=== PATIENT | female | born 1990 | race Caucasian/White ===

== ENCOUNTER 2022-03-24 12:21 | Outpatient (CLI) | payer OTHER, SELFPAY | END 2022-03-24 12:22 | disposition home or self-care (01) | LOC: FRMREF 04-01 14:03 | PROVIDERS: PCP Physician Assistant Medical; Visit Provider Nurse Practitioner Family | DX: R30.0 Dysuria (principal) | CPT/HCPCS: 87086 ==

== ENCOUNTER 2022-10-21 13:28 | Outpatient (CLI) | payer OTHER, SELFPAY ==
[2022-10-21 22:07] LABS: Chlamydia DNA Amplified* NOT DETECTED (No Detected); GC DNA Amplified* NOT DETECTED (No Detected)
== END 2022-10-21 13:29 | disposition home or self-care (01) ==
PROVIDERS: PCP Physician Assistant Medical; Visit Provider Physician Assistant Medical
DX: Z00.00 Encounter for general adult medical examination without abnormal findings (principal); D50.9 Iron deficiency anemia, unspecified; E11.9 Type 2 diabetes mellitus without complications; Z13.29 Encounter for screening for other suspected endocrine disorder; Z11.3 Encounter for screening for infections with a predominantly sexual mode of transmission; Z13.6 Encounter for screening for cardiovascular disorders
CPT/HCPCS: 80053; 80061; 82043; 82570; 84443; 87491; 87591; 87624; 88174

== ENCOUNTER 2023-01-19 07:53 | Outpatient (CLI) | payer OTHER, SELFPAY | END 2023-01-19 07:54 | disposition home or self-care (01) | LOC: NFLDREF 01-21 22:07 | PROVIDERS: PCP Physician Assistant Medical; Referring Provider Physician Assistant Medical; Visit Provider Physician Assistant Medical | DX: E11.9 Type 2 diabetes mellitus without complications (principal); E78.5 Hyperlipidemia, unspecified | CPT/HCPCS: 80061; 80076 ==

== ENCOUNTER 2023-07-12 09:03 | Outpatient (CLI) | payer OTHER, SELFPAY | END 2023-07-12 09:04 | disposition home or self-care (01) | LOC: NFLDREF 07-19 06:55 | PROVIDERS: PCP Physician Assistant Medical; Referring Provider Physician Assistant Medical; Visit Provider Physician Assistant Medical | DX: E11.9 Type 2 diabetes mellitus without complications (principal); E78.5 Hyperlipidemia, unspecified | CPT/HCPCS: 80061; 80076 ==

== ENCOUNTER 2023-10-17 11:34 | Outpatient (CLI) | payer OTHER, SELFPAY | END 2023-10-17 11:35 | disposition home or self-care (01) | PROVIDERS: PCP Physician Assistant Medical; Referring Provider Physician Assistant Medical; Visit Provider Nurse Practitioner Family | DX: R30.0 Dysuria (principal); N91.2 Amenorrhea, unspecified; R42 Dizziness and giddiness; R11.0 Nausea; R11.2 Nausea with vomiting, unspecified | CPT/HCPCS: 87086 ==

== ENCOUNTER 2023-12-13 11:44 | Outpatient (CLI) | payer OTHER, SELFPAY | END 2023-12-13 11:45 | disposition home or self-care (01) | PROVIDERS: PCP Physician Assistant Medical; Visit Provider Physician Assistant Medical | DX: D64.9 Anemia, unspecified (principal); E11.9 Type 2 diabetes mellitus without complications; E78.5 Hyperlipidemia, unspecified | CPT/HCPCS: 80061; 80076; 82043; 82570; 82607; 82746; 83540; 83550; 84443 ==

== ENCOUNTER 2024-01-12 12:52 | Outpatient (CLI) | payer OTHER, SELFPAY | END 2024-01-12 12:53 | disposition home or self-care (01) | PROVIDERS: PCP Physician Assistant Medical; Referring Provider Physician Assistant Medical; Visit Provider Physician Assistant Medical | DX: D50.9 Iron deficiency anemia, unspecified (principal) | CPT/HCPCS: 82728; 83540; 83550 ==

== ENCOUNTER 2024-06-23 10:25 | Outpatient (CLI) | payer OTHER, SELFPAY | END 2024-06-23 10:26 | disposition home or self-care (01) | LOC: NFLDREF 06-27 01:58 | PROVIDERS: PCP Physician Assistant Medical; Referring Provider Physician Assistant Medical; Visit Provider Physician Assistant Medical | DX: E78.5 Hyperlipidemia, unspecified (principal) | CPT/HCPCS: 80061 ==

== ENCOUNTER 2024-10-24 12:06 | Outpatient (CLI) | payer OTHER, SELFPAY | END 2024-10-24 12:07 | disposition home or self-care (01) | LOC: NFLDREF 10-31 04:28 | PROVIDERS: PCP Physician Assistant Medical; Referring Provider Physician Assistant Medical | DX: R35.0 Frequency of micturition (principal) | CPT/HCPCS: 87086 ==

== ENCOUNTER 2024-11-02 12:35 | Outpatient (CLI) | payer OTHER, SELFPAY | END 2024-11-02 12:36 | disposition home or self-care (01) | LOC: NFLDREF 11-07 13:44 | PROVIDERS: PCP Physician Assistant Medical; Referring Provider Physician Assistant Medical; Visit Provider Physician Assistant Medical | DX: E11.9 Type 2 diabetes mellitus without complications (principal); N92.6 Irregular menstruation, unspecified; E78.5 Hyperlipidemia, unspecified; D64.9 Anemia, unspecified; J45.909 Unspecified asthma, uncomplicated | CPT/HCPCS: 80053; 80061; 80323; 82043; 82306; 82570; 82607; 84443 ==